=== PATIENT | male | born 1960 | race Caucasian/White ===

== ENCOUNTER → 2020-01-04 13:37 | Outpatient (CLI) | payer BC, SELFPAY ==
[2020-01-04 13:44] LABS: Basophils # 0.1 K/mm3 (0-0.2); Basophils % 1.1 % (0.1-2.0); Eosinophils # 0.9 K/mm3 (0.0-0.4); Eosinophils % 9.6 % (0.1-12.0); Hematocrit 48.8 % (42.0-52.0); Lymphocytes # 2.1 K/mm3 (0.7-4.5); Lymphocytes % 21.9 % (10-50); Mean Corpuscular HGB Conc 34.8 g/dL (31.8-35.4); Mean Corpuscular Volume 92.2 fl (80-94); Mean Platelet Volume 8.8 fl (7.4-10.4); Monocytes # 0.4 K/mm3 (0.1-1.0); Monocytes % 3.9 % (1.7-9.3); Neutrophils # 6.1 K/mm3 (1.8-7.8); Neutrophils % 63.5 % (37.0-80.0); Platelet Count 263 K/mm3 (142-424); Red Blood Count 5.29 M/mm3 (4.60-6.20); Red Cell Distribution Width 13.9 % (11.5-17.5); White Blood Count 9.6 K/mm3 (4.8-10.8)
[2020-01-04 14:04] LABS: Chloride 102 mmol/L (98-107); Potassium 4.3 mmoL/L (3.5-5.1); Sodium 141 mmol/L (136-145)
[2020-01-04 14:07] LABS: Alanine Aminotransferase 54 U/L (12-78); Albumin Level 4.1 g/dl (3.5-5.0); Albumin/Globulin Ratio 1.5 (1.1-1.8); Alkaline Phosphatase 73 U/L (38-126); Anion Gap 16.3 mEq/L (5-15); Aspartate Amino Transferase 40 U/L (17-59); Bilirubin,Total 0.7 mg/dl (0.2-1.3); Blood Urea Nitrogen 17 mg/dl (9-20); Carbon Dioxide 27 mmol/L (22.0-30.0); Estimated Glomerular Filt Rate 100 ml/min (>60); GFR (African American) 121 ML/MIN (>60); Globulin 2.8 g/dL (1.3-3.2); Total Protein,Serum 6.9 g/dl (6.3-8.2)
[2020-01-04 14:08] LABS: Calcium 10.2 mg/dl (8.4-10.2); Glucose 154 mg/dl (74-100)
[2020-01-04 14:09] LABS: Hemoglobin A1C 6.2 % (4.0-6.0)
[2020-01-05 15:18] LABS: PSA, Free 0.38 ng/mL; Prostate Specific Ag 0.7 ng/mL (0.0-4.0)
== END ==
PROVIDERS: Visit Provider Family Medicine
DX: E11.9 Type 2 diabetes mellitus without complications (principal); Z12.5 Encounter for screening for malignant neoplasm of prostate; Z79.84 Long term (current) use of oral hypoglycemic drugs
CPT/HCPCS: 80053; 83036; 84153; 84154; 85025

== ENCOUNTER → 2020-07-15 13:33 | Outpatient (CLI) | payer BC, SELFPAY ==
[2020-07-15 14:14] LABS: Microalbumin/Creatinine Ratio 27.6
[2020-07-15 14:15] LABS: Creatinine,Urine Random 186 mg/dL (Not Estab.)
[2020-07-15 14:32] LABS: Alanine Aminotransferase 50 U/L (12-78); Albumin Level 4.8 g/dl (3.5-5.0); Albumin/Globulin Ratio 1.5 (1.1-1.8); Alkaline Phosphatase 80 U/L (38-126); Anion Gap 18.4 mEq/L (5-15); Aspartate Amino Transferase 35 U/L (17-59); Bilirubin,Total 0.9 mg/dl (0.2-1.3); Blood Urea Nitrogen 21 mg/dl (9-20); Calcium 10.4 mg/dl (8.4-10.2); Carbon Dioxide 29 mmol/L (22.0-30.0); Chloride 95 mmol/L (98-107); Cholesterol 223 mg/dl (140-200); Estimated Glomerular Filt Rate 87 ml/min (>60); GFR (African American) 105 ML/MIN (>60); Globulin 3.2 g/dL (1.3-3.2); Glucose 164 mg/dl (74-100); HDL Cholesterol 28 mg/dl (40-60); Potassium 4.4 mmoL/L (3.5-5.1); Sodium 138 mmol/L (136-145); Triglycerides 243 mg/dl (30-150); VLDL Cholesterol 49 mg/dL (0-40)
[2020-07-15 14:33] LABS: Basophils # 0.1 K/mm3 (0-0.2); Basophils % 0.9 % (0.1-2.0); Eosinophils # 0.3 K/mm3 (0.0-0.4); Eosinophils % 3.7 % (0.1-12.0); Hematocrit 54.7 % (42.0-52.0); Lymphocytes # 2.9 K/mm3 (0.7-4.5); Mean Corpuscular HGB Conc 34.1 g/dL (31.8-35.4); Mean Corpuscular Hemoglobin 31.9 pg (27.0-31.2); Mean Corpuscular Volume 93.6 fl (80-94); Mean Platelet Volume 9.7 fl (7.4-10.4); Monocytes # 0.7 K/mm3 (0.1-1.0); Monocytes % 7.6 % (1.7-9.3); Neutrophils # 4.8 K/mm3 (1.8-7.8); Neutrophils % 54.9 % (37.0-80.0); Platelet Count 325 K/mm3 (142-424); Red Blood Count 5.85 M/mm3 (4.60-6.20); Red Cell Distribution Width 13.5 % (11.5-17.5); White Blood Count 8.7 K/mm3 (4.8-10.8)
[2020-07-15 14:37] LABS: Hemoglobin 18.6 g/dL (14.1-18.0)
[2020-07-15 14:49] LABS: Direct LDL Cholesterol 157.15 mg/dL (100-129)
[2020-07-15 14:52] LABS: 25-OH Vitamin D, Total 29.8 ng/mL (30-100); T4 (Thyroxine) 11.2 ug/dl (5.53-11.0)
[2020-07-15 15:00] LABS: Hemoglobin A1C 6.6 % (4.0-6.0)
[2020-07-15 15:05] LABS: Thyroid Stimulating Hormone 5.95 uIU/mL (0.465-4.68)
== END ==
PROVIDERS: Visit Provider Family Medicine
DX: E11.9 Type 2 diabetes mellitus without complications (principal); I10 Essential (primary) hypertension; E55.9 Vitamin D deficiency, unspecified; Z79.84 Long term (current) use of oral hypoglycemic drugs; Z79.899 Other long term (current) drug therapy
CPT/HCPCS: 80053; 80061; 82043; 82306; 82570; 83036; 84436; 84443; 85025

== ENCOUNTER → 2020-08-15 15:00 | Outpatient (CLI) | payer BC, SELFPAY ==
--- NOTE | 2020-08-15 15:20 | XR_ITS ---
PROCEDURE: XR FOOT WT BEARING LT 3V CLINICAL INDICATION: diabetic Pain COMPARISON: No exams were available for comparison FINDINGS: No fracture or dislocation. No lytic or blastic change. There is normal mineralization. Mild osteoarthritic change 1st metatarsophalangeal junction with pes planus and mild osteoarthritis of the talonavicular and navicular cuneiform joint as well as the tarsal metatarsal junction. There is a small calcaneal spur. No bony destructive process. Other findings:None. IMPRESSION: No acute findings. Dictated by: Warren Liriano MD 08/15/2020 17:36 Warren Liriano MD in [place] 08/15/2020 17:36
--- NOTE | 2020-08-15 15:20 | XR_ITS ---
PROCEDURE: XR FOOT WT BEARING RT 3V CLINICAL INDICATION: 2nd toe ulcer COMPARISON: No exams were available for comparison FINDINGS: There is pes planus with osteoarthritic changes of the 1st metatarsophalangeal junction and at the talonavicular and navicular cuneiform joint and tarsal metatarsal junction. There is soft tissue swelling of the 2nd toe. The distal phalanx of the 2nd toe has a somewhat blunted appearance. This however has a similar appearance on the left side. There are some sub cortical lucencies at the tip of the distal phalanx of the 2nd toe. IMPRESSION: Soft tissue swelling of the 2nd toe consistent with cellulitis. There are few subcortical lucencies at the distal aspect of the distal phalanx of the 2nd toe which is of questionable clinical significance. Cannot exclude the possibility of osteomyelitis. MRI may provide further value if clinically warranted Dictated by: Warren Liriano MD 08/15/2020 17:39 Warren Liriano MD in [place] 08/15/2020 17:39
[2020-08-15 15:23] LABS: Basophils # 0.1 K/mm3 (0-0.2); Basophils % 1.1 % (0.1-2.0); Eosinophils # 0.2 K/mm3 (0.0-0.4); Eosinophils % 2.2 % (0.1-12.0); Hematocrit 48.8 % (42.0-52.0); Hemoglobin 16.7 g/dL (14.1-18.0); Lymphocytes # 2.4 K/mm3 (0.7-4.5); Lymphocytes % 30.3 % (10-50); Mean Corpuscular HGB Conc 34.1 g/dL (31.8-35.4); Mean Corpuscular Hemoglobin 30.8 pg (27.0-31.2); Mean Corpuscular Volume 90.3 fl (80-94); Mean Platelet Volume 8.7 fl (7.4-10.4); Monocytes # 0.5 K/mm3 (0.1-1.0); Monocytes % 5.9 % (1.7-9.3); Neutrophils # 4.7 K/mm3 (1.8-7.8); Neutrophils % 60.4 % (37.0-80.0); Platelet Count 285 K/mm3 (142-424); Red Cell Distribution Width 13.2 % (11.5-17.5); White Blood Count 7.9 K/mm3 (4.8-10.8)
[2020-08-15 17:05] LABS: Alanine Aminotransferase 43 U/L (12-78); Albumin Level 4.7 g/dl (3.5-5.0); Albumin/Globulin Ratio 1.4 (1.1-1.8); Alkaline Phosphatase 73 U/L (38-126); Anion Gap 13.6 mEq/L (5-15); Aspartate Amino Transferase 38 U/L (17-59); Bilirubin,Total 0.7 mg/dl (0.2-1.3); Blood Urea Nitrogen 17 mg/dl (9-20); Calcium 10.2 mg/dl (8.4-10.2); Carbon Dioxide 29 mmol/L (22.0-30.0); Chloride 102 mmol/L (98-107); Estimated Glomerular Filt Rate 87 ml/min (>60); GFR (African American) 105 ML/MIN (>60); Globulin 3.3 g/dL (1.3-3.2); Glucose 164 mg/dl (74-100); Potassium 4.6 mmoL/L (3.5-5.1); Sodium 140 mmol/L (136-145)
[2020-08-15 17:10] LABS: C-Reactive Protein 6.2 mg/L (0-4)
[2020-08-15 19:52] LABS: Erythrocyte Sedimentation Rate 6 mm/hr (0-20)
== END ==
PROVIDERS: PCP Family Medicine; Visit Provider Podiatrist
DX: E11.621 Type 2 diabetes mellitus with foot ulcer (principal); L02.611 Cutaneous abscess of right foot; L97.519 Non-pressure chronic ulcer of other part of right foot with unspecified severity; L03.031 Cellulitis of right toe; Z98.890 Other specified postprocedural states; Z79.84 Long term (current) use of oral hypoglycemic drugs
CPT/HCPCS: 36415; 73630; 80053; 85025; 85651; 86140; 87070; 87077; 87186; 87205

== ENCOUNTER → 2020-09-01 10:18 | Outpatient (CLI) | payer BC, SELFPAY ==
--- NOTE | 2020-09-01 10:20 | US_ITS ---
APPROVED REPORT Exam Type: Lower Extremity Segmental Pressures Fleet Driver: Francesca Martinez RVT Indications Non-healing Ulcer: Right ULCER RT 2ND TOE,PRE-OP Risk Factors Diabetes Pressures/Indices Right Indices Left Indices Brachial 156.00 mmHg Brachial 166.00 mmHg Low Thigh 177.00 mmHg 1.07 Low Thigh 175.00 mmHg 1.05 Calf 191.00 mmHg 1.15 Calf 179.00 mmHg 1.08 Ankle(PT) 203.00 mmHg 1.22 Ankle(PT) 166.00 mmHg 1.00 Ankle(DP) 195.00 mmHg 1.17 Ankle(DP) 183.00 mmHg 1.10 Digit 120.00 mmHg 0.72 Digit 110.00 mmHg 0.66 Findings RT CHAD:1.22 LT CHAD:1.10 RT TBI:0.72 LT TBI:0.66 NORMAL PULSES BILATERAL NORMAL WAVEFORMS BILATERAL Conclusion RT CHAD:1.22 LT CHAD:1.10 RT TBI:0.72 LT TBI:0.66 NORMAL PULSES BILATERAL NORMAL WAVEFORMS BILATERAL Electronically signed by : Warren Liriano MD 09/01/2020 18:32:35
== END ==
PROVIDERS: PCP Family Medicine; Visit Provider Podiatrist
DX: R20.8 Other disturbances of skin sensation (principal); R20.0 Anesthesia of skin; R20.2 Paresthesia of skin
CPT/HCPCS: 93923

== ENCOUNTER → 2021-03-28 19:24 | Outpatient (CLI) | payer BC, SELFPAY ==
[2021-03-28 21:43] LABS: Hemoglobin A1C 8.8 % (4.0-6.0)
[2021-03-28 21:48] LABS: Alanine Aminotransferase 42 U/L (12-78); Albumin/Globulin Ratio 1.3 (1.1-1.8); Alkaline Phosphatase 78 U/L (38-126); Anion Gap 13.4 mEq/L (5-15); Aspartate Amino Transferase 30 U/L (17-59); Bilirubin,Total 0.6 mg/dl (0.2-1.3); Blood Urea Nitrogen 18 mg/dl (9-20); Calcium 9.8 mg/dl (8.4-10.2); Carbon Dioxide 28 mmol/L (22.0-30.0); Chloride 103 mmol/L (98-107); Estimated Glomerular Filt Rate 138 ml/min (>60); GFR (African American) 167 ML/MIN (>60); Globulin 3.1 g/dL (1.3-3.2); Glucose 176 mg/dl (74-100); Potassium 4.4 mmoL/L (3.5-5.1); Sodium 140 mmol/L (136-145); Total Protein,Serum 7.1 g/dl (6.3-8.2)
[2021-03-28 22:21] LABS: Thyroid Stimulating Hormone 4.23 uIU/mL (0.465-4.68)
== END ==
PROVIDERS: Visit Provider Family Medicine
DX: E11.9 Type 2 diabetes mellitus without complications (principal); Z79.84 Long term (current) use of oral hypoglycemic drugs
CPT/HCPCS: 80053; 83036; 84443

== ENCOUNTER → 2022-02-20 08:14 | Outpatient (CLI) | payer BC, SELFPAY ==
[2022-02-20 20:52] LABS: Basophils # 0.1 K/mm3 (0-0.2); Eosinophils # 0.2 K/mm3 (0.0-0.4); Eosinophils % 2.1 % (0.1-12.0); Hematocrit 48.7 % (42.0-52.0); Hemoglobin 15.6 g/dL (14.1-18.0); Lymphocytes # 2.5 K/mm3 (0.7-4.5); Lymphocytes % 27.8 % (10-50); Mean Corpuscular Hemoglobin 30.2 pg (27.0-31.2); Mean Corpuscular Volume 94.4 fl (80-94); Mean Platelet Volume 10.5 fl (7.4-10.4); Monocytes # 0.5 K/mm3 (0.1-1.0); Monocytes % 5.5 % (1.7-9.3); Neutrophils # 5.7 K/mm3 (1.8-7.8); Neutrophils % 63.5 % (37.0-80.0); Platelet Count 340 K/mm3 (142-424); Red Blood Count 5.16 M/mm3 (4.60-6.20); Red Cell Distribution Width 14.3 % (11.5-17.5)
[2022-02-20 21:37] LABS: Alanine Aminotransferase 39 U/L (12-78); Albumin Level 4.3 g/dl (3.5-5.0); Albumin/Globulin Ratio 1.4 (1.1-1.8); Alkaline Phosphatase 97 U/L (38-126); Anion Gap 15.5 mEq/L (5-15); Aspartate Amino Transferase 32 U/L (17-59); Bilirubin,Total 0.3 mg/dl (0.2-1.3); Blood Urea Nitrogen 20 mg/dl (9-20); Calcium 9.6 mg/dl (8.4-10.2); Carbon Dioxide 28 mmol/L (22.0-30.0); Chloride 100 mmol/L (98-107); Chol/HDL Ratio 8.1 (1-3.5); Cholesterol 260 mg/dl (140-200); Estimated Glomerular Filt Rate 86 ml/min (>60); GFR (African American) 105 ML/MIN (>60); Glucose 161 mg/dl (74-100); HDL Cholesterol 32 mg/dl (40-60); Potassium 4.5 mmoL/L (3.5-5.1); Sodium 139 mmol/L (136-145); Total Protein,Serum 7.3 g/dl (6.3-8.2); Triglycerides 269 mg/dl (30-150); VLDL Cholesterol 54 mg/dL (0-40)
[2022-02-20 22:10] LABS: Prostate Specific Ag Screen 0.9 ng/ml (0.0-4.0); Thyroid Stimulating Hormone 5.64 uIU/mL (0.465-4.68)
[2022-02-22 08:25] LABS: Direct LDL Cholesterol 159 mg/dL (100-129)
== END ==
PROVIDERS: PCP Family Medicine; Visit Provider Family Medicine
DX: I10 Essential (primary) hypertension (principal); E78.5 Hyperlipidemia, unspecified; E03.9 Hypothyroidism, unspecified; E11.9 Type 2 diabetes mellitus without complications; Z79.84 Long term (current) use of oral hypoglycemic drugs
CPT/HCPCS: 80053; 80061; 83036; 84443; 85025; G0103

== ENCOUNTER 2023-08-22 22:26 | Outpatient (CLI) | payer BC, SELFPAY ==
[2023-08-22 18:45] LABS: Basophils # 0.1 K/mm3 (0-0.2); Basophils % 1.1 % (0.1-2.0); Eosinophils # 0.3 K/mm3 (0.0-0.4); Eosinophils % 2.9 % (0.1-12.0); Hemoglobin 15.6 g/dL (14.1-18.0); Lymphocytes # 2.7 K/mm3 (0.7-4.5); Lymphocytes % 30.3 % (10-50); Mean Corpuscular HGB Conc 33.2 g/dL (31.8-35.4); Mean Corpuscular Hemoglobin 31.2 pg (27.0-31.2); Mean Platelet Volume 10.1 fl (7.4-10.4); Monocytes # 0.6 K/mm3 (0.1-1.0); Monocytes % 6.1 % (1.7-9.3); Neutrophils # 5.4 K/mm3 (1.8-7.8); Neutrophils % 59.7 % (37.0-80.0); Platelet Count 270 K/mm3 (142-424); Red Cell Distribution Width 15.1 % (11.5-17.5)
[2023-08-22 20:09] LABS: Alanine Aminotransferase 32 U/L (12-78); Albumin Level 3.9 g/dl (3.5-5.0); Albumin/Globulin Ratio 1.6 (1.1-1.8); Alkaline Phosphatase 89 U/L (38-126); Anion Gap 12.4 mEq/L (5-15); Aspartate Amino Transferase 33 U/L (17-59); Bilirubin,Total 0.7 mg/dl (0.2-1.3); Blood Urea Nitrogen 22 mg/dl (9-20); Calcium 9.4 mg/dl (8.4-10.2); Carbon Dioxide 25 mmol/L (22.0-30.0); Chloride 104 mmol/L (98-107); Chol/HDL Ratio 10.2 (1-3.5); Cholesterol 234 mg/dl (140-200); Estimated Glomerular Filt Rate 98 ml/min (>60); GFR (African American) 119 ML/MIN (>60); Globulin 2.5 g/dL (1.3-3.2); Glucose 235 mg/dl (74-100); HDL Cholesterol 23 mg/dl (40-60); Potassium 4.4 mmoL/L (3.5-5.1); Sodium 137 mmol/L (136-145); Total Protein,Serum 6.4 g/dl (6.3-8.2)
[2023-08-22 20:10] LABS: Triglycerides 497 mg/dl (30-150)
[2023-08-22 20:20] LABS: Direct LDL Cholesterol 104.73 mg/dL (100-129)
[2023-08-22 20:26] LABS: T4 (Thyroxine) 7.4 ug/dl (5.53-11.0)
[2023-08-22 20:40] LABS: Thyroid Stimulating Hormone 2.99 uIU/mL (0.465-4.68)
== END 2023-08-22 23:59 ==
LOC: LAB.DROPOF 22:26
PROVIDERS: PCP Family Medicine; Visit Provider Family Medicine
DX: E78.5 Hyperlipidemia, unspecified (principal); E11.9 Type 2 diabetes mellitus without complications; E03.9 Hypothyroidism, unspecified; Z79.4 Long term (current) use of insulin
CPT/HCPCS: 80053; 80061; 83036; 84436; 84443; 85025

== ENCOUNTER 2024-12-31 14:38 | Outpatient (CLI) | payer BC, SELFPAY ==
--- OUTSIDE RECORDS SUMMARY | 2024-12-31 14:43 | XMS_ITS | Clinical Summary ---
Author Organization [facility] Address [address] [place], [place] [address] Phone Care Team Providers Care Vegetable Cutter Name Role Phone Alec Sanabria MD Primary Care Provider [phone] Allergies No known active allergies Medications aspirin (ASPIRIN) 81 mg Oral Tablet, ChewableIndications :Essential hypertension,Uncont rolled type 2 diabetes mellitus with hyperosmolarity without coma, without long-term current use of insulin (HCC),Hyperlipidemi a, mixed Take 1 Tab by mouth daily. 30 Tab 01/05/20 17 Active Cholecalciferol, Vitamin D3, 5,000 unit Oral CapsuleIndications: Vitamin D deficiency TAKE 1 CAPSULE BY MOUTH DAILY 100 Cap 04/22/20 17 Active Additional Information Patient taking differently: 2 TIMES DAILY, Reason: Other (takes twice day), Informant: Self/Patient, Reported on 01/08/2024 metFORMIN (GLUCOPHAGE) 1,000 mg Oral TabletIndications:U ncontrolled diabetes mellitus type 2 without complications Take 1 Tab by mouth 2 times daily (with meals). 60 Tab 12/23/19 19 Active lisinopril-hydrochl orothiazide (PRINZIDE;ZESTORETI C) 20-25 mg Oral TabletIndications:E ssential hypertension Take 1 Tab by mouth daily. 30 Tab 12/30/19 19 Active dulaglutide (TRULICITY) 0.75 mg/0.5 mL SubQ Pen Injector Subcutaneous (Inject under the skin) 0.75 mg once a week. Active atorvastatin (LIPITOR) 40 mg Oral TabletIndications:H yperlipidemia, mixed Take 1 Tablet by mouth daily. 30 Tablet 3:55 PM EST 05/19/20 23 Active Additional Information Patient not taking.Reason: Therapy Completed, Reported on 01/20/2024 fish oil OTC (OMEGA-3 DHA-EPA 300 MG) 300-1,000 mg Oral Capsule, Delayed Release(E.C.) Take 2 g by mouth daily. 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 05/17/2023 Chronic toe ulcer, left, with fat layer exposed 05/17/2023 Chronic ulcer of right great toe, with fat layer exposed 05/17/2023 Osteomyelitis of third toe of right foot 023 JEREMIAH (acute kidney injury) 05/16/2023 Diabetic foot infection 02/04/2022 Cellulitis of toe of right foot 03/18/2021 Type 2 diabetes mellitus wit hout complication, without long-term current use of insulin 07/08/2017 Hypertension associated with diabetes 11/09/2014 Diabetic polyneuropathy asso ciated with type 2 diabetes mellitus Resolved Problems Problem Noted Date Diagnosed Date Resolved Date Osteomyelitis of great toe of left foot 02/04/2022 05/17/2023 Acute prerenal azotemia 02/04/2022 12/0 06/2022 Hyponatremia 02/04/2022 05/17/2023 Septic arthritis of right foot 03/18/2021 05/17/2023 Osteomyelitis of toe 03/17/2021 023 2019-nCoV vaccination not done 03/17/2021 05/17/2023 Abscess of left great toe Ulcer of left foot, with necrosis of muscle 05/17/2023 Immunizations Immunization Administration Dates Next Due Tdap 11/09/2014 Surgical History Surgery Date Site/Laterality Comments FOOT SURGERY 03/18/2021 Right PARTIAL AMPUTATION SECOND DIGIT RIGHT FOOT; Surgeon: Eugene Manzo DPM; Location: [facility]; Service: Podiatry FOOT SURGERY 02/05/2022 Foot/Ankle/Left INCISION AND DRAINAGE WITH DEBRIDEMENT LEFT FOOT WOUND; Surgeon: Roman Tidwell DPM; Location[facility]; Service: Podiatry FOOT SURGERY 05/17/2023 Foot/Ankle/Right RIGHT FOOT INCISION AND DRAINAGE WITH PARTIAL THIRD TOE AMPUTATION; Surgeon: Roman Tidwell DPM; Location: [facility]; Service: Podiatry TOE AMPUTATION 05/17/2023 Foot/Ankle/Right Foot/Ankle Surgeon: oRman Tidwell DPM; Location: [facility]; Service: Podiatry COLONOSCOPY TOE FUSION 06/11/2023 Foot/Ankle/Left Hallux fusion of the left foot first metatarsal.; Surgeon: Roman Tidwell DPM; Location: [facility]; Service: Podiatry TOE AMPUTATION 01/13/2024 Foot/Ankle/Left Amputation of the left hallux.; Surgeon: Roman Tidwell DPM; [facility]; Service: Podiatry Medical History Medical History Date Comments Diabetes mellitus (HCC) type II Hypertension Neuropathy in diabetes (HCC) At doctor Osteomyelitis of great toe of left foot (HCC) Hyperlipidemia Anxiety and depression Family History Medical History Relation Name Comments High Blood Pressure Father Anesth Problems Neg Hx Relation Name Status Comments Father Mother Social History Tobacco Use Types Packs/Day Years Used Date Smoking Tobacco: Never Smokeless Tobacco: Never Tobacco Cessation:Counseling Given: No Alcohol Use Standard Drinks/Week Comments Not Currently 0 (1 standard drink = 0.6 oz pur e alcohol) Overall Financial Resource Strain (CARDI) Answe r Date Recorded How hard is it for you to pa y for the very basics like food, housing, medical care, and heating? Not hard at all 05/18/2023 PHQ-2 Answer Date Recorded PHQ-2 Total Score 0 05/18/2023 Exercise Vital Sign Answer Date Recorde d On average, how many days pe r week do you engage in moderate to strenuous exercise (like a brisk walk)? 0 days 05/18/2023 On average, how many minutes do you engage in exercise at this level? 0 min 05/18/2023 Hunger Vital Sign Answer Date Recorded Within the past 12 months, y ou worried that your food would run out before you got the money to buy more. Never true 05/18/20 23 Within the past 12 months, t he food you bought just didn't last and you didn't have money to get more. Never true 05/18/2023 PRAPARE - Transportation Answer Date Re corded In the past 12 months, has l ack of transportation kept you from medical appointments or from getting medications? No 07/2022 In the past 12 months, has l ack of transportation kept you from meetings, work, or from getting things needed for daily living? No 05/18/2023 Sexually Active Control Partners Comments Yes Female Sex and Gender Information Value Date Recorded Sex Assigned at Not on file Legal Sex Male 6:09 PM EDT Gender Identity Not on file Sexual Orientation Not on file Obstetrics History Last Filed Vital Signs Vital Sign Reading Time Taken Comments Blood Pressure 164/70 01/13/2024 1:15 PM EDT Pulse 62 01/13/2024 1:15 PM EDT Temperature 36.4 C (97.6 F) 03/03/2024 3:44 PM EDT Respiratory Rate 16 01/13/2024 1:15 PM EDT Oxygen Saturation 97% 01/13/2024 1:15 PM EDT Inhaled Oxygen Concentration - - Weight 126.3 kg (278 lb 6.4 oz) 03/03/2024 3:44 PM EDT Height 190.5 cm (6' 3 ) 03/03/2024 3:44 PM EDT Body Mass Index 34.8 03/03/2024 3:44 PM EDT Plan of Treatment Health Maintenance Due Date Last Done Comments Diabetic Eye Exam 1980 Pneumococcal Vaccine 50+ (1 of 2 - PCV) 1981 Cologuard 2007 Colon Cancer Screening 2007 Colonoscopy 2007 FIT 2007 Sigmoidoscopy 2007 Virtual Colonography 2007 Zoster (1 of 2) 2012 Annual Wellness Exam 02/21/2019 02/21/2018, 01/05/20 17 Kidney Health: uACR 02/21/2019 02/21/2018 RSV or 60+ (1 - Risk 60-74 years 1-dose series) 2022 Hemoglobin A1c 11/14/2023 05/16/2023, 01/16, 03/16/2021, Additional history exists COVID-19 Vaccine ( season) 2024 Lipids 05/18/2024 05/18/2023, 02/17, 02/21/2018, Additional history exists Kidney Health: eGFR 05/19/2024 05/19/2023, 05/18/2023, 05/17/2023, Additional history exists DTaP/TDaP/Td (2 - Td or Tdap) 11/09/2024 11/09/2014 Influenza Vaccine (#1) 2025 07/08/2017 (Declin ed) Hepatitis C Screening Completed 01/18/2017, 017 Hepatitis B Vaccine Aged Out No longe r eligible based on patient's age to complete this topic Meningococcal B Vaccine Aged Out No l onger eligible based on patient's age to complete this topic Goals Goal Patient Goal Type Associated Problems Recent Progress Patient-Stated? Author Blood Pressure < 140/90 Blood Pressure 164/70(2023 1:15 PM EDT) No Ese Liz RMA Maintain a healthy diet, exercise regularly and maintain an ideal body weight General No Ese Liz RMA BMI (Calculated) < 30 General 34.9(03/03/20 24 3:44 PM EDT) No Alma Delia Green MD HEMOGLOBIN A1C < 7.0 Result Component 7.6( 4:50 PM EST) No Alma Delia Green MD Procedures Procedure Name Priority Date/Time Associated Diagnosis Comments BASIC METABOLIC PANEL Early AM 05/19/2023 4:56 AM EST LIPID SCREEN Early AM 05/18/2023 4:42 AM EST HEMOGLOBIN A1C Routine 05/16/2023 4:50 PM EST MICROALBUMIN/CREATIN INE RATIO URINE Routine 02/21/2018 10:51 AM EDT Type 2 diabetes mellitus without complication, without long-term current use of insulin (HCC) ACUTE HEPATITIS PANEL Routine 01/18/2017 9:21 AM EDT Need for hepatitis C screening test from Last 3 Months or Most Recently Relevant to Health Maintenance Results * (ABNORMAL) BASIC METABOLIC PANEL (05/19/2023 4:56 AM EST) Sodium 140 136 - 145 mmol/L 05/19/2023 5:57 AM EST [facility] Potassium 4.4 3.5 - 5.0 mmol/L 05/19/2023 5:57 AM EST [facility] Chloride 105 98 - 107 mmol/L 05/19/2023 5:57 AM EST [facility] Total CO2 27 22 - 29 mmol/L 05/19/2023 5:57 AM EST [facility] Anion Gap 8 7 - 16 mmol/L 05/19/2023 5:57 AM EST [facility] Calcium 8.6(L) 8.8 - 10.4 mg/dL 05/19/2023 5:57 AM EST [facility] Glucose Lvl 136(H) 82 - 100 mg/dL 05/19/2023 5:57 AM EST [facility] BUN 16 8 - 23 mg/dL 05/19/2023 5:57 AM EST [facility] Creatinine 0.95 0.67 - 1.30 mg/dL 05/19/2023 5:57 AM EST [facility] eGFR (CKD-EPIcr 2020) 92 >=60 mL/min/1.7 3 m2 05/19/2023 5:57 AM EST [facility] Comment:Estimated GFR was ca lculated using the CKD-EPIcr (2020) equation refit without race. The equation is recommended by the National Kidney Foundation - [place] [employer] Neph[employer] Task Force. Blood VENOUS BLOOD / Unknown Venipuncture / Unknown 05/19/2023 4:56 AM EST 05/19/2023 5:29 AM EST us Roman Tidwell DPKati CHEMISTRY ORDERABLES Final Result [facility] [address] , [place] [address] [facility] [address] [place] [address] * (ABNORMAL) LIPID SCREEN (05/18/2023 4:42 AM EST) Pathologist [facility] Cholesterol 153 <200 mg/dL 05/18/2023 8:18 AM EST [facility] Comment: < 200 Desirable 200 - 239 Borderline High >= 240 High Triglyceride 77 <150 mg/dL 05/18/2023 8:18 AM EST [facility] Comment: < 150 Normal 150 - 199 Borderline High 200 - 499 High >= 500 Very High HDL 24(L) >=40 mg/dL 05/18/2023 8:18 AM EST [facility] Comment: > 60 Optimal 40 - 60 Acceptable < 40 Low LDL Calculated 114(H) <100 mg/dL 05/18/2023 8:18 AM EST [facility] Comment: < 100 Optimal 100 - 129 Near or above optimal 130 - 159 Borderline High 160 - 189 High >= 190 Very High Non-HDL-C Calculated 129 <=129 mg/dL 05/18/2023 8:18 AM EST [facility] Comment: <130 Desirable 130-159 Above Desirable 160-189 Borderline High 190-219 High >= 220 Very High Fasting Specimen? Yes None 023 8:18 AM EST [facility] Blood VENOUS BLOOD / Unknown Venipuncture / Unknown 05/18/2023 4:42 AM EST 05/18/2023 7:17 AM EST Roman Tidwell DPKati CHEMISTRY ORDERABLES Final Result [facility] [address] , [place] [address] [facility] [address] [place] [address] * (ABNORMAL) HEMOGLOBIN A1C (05/16/2023 4:50 PM EST) Pathologist [facility] Hgb A1C 7.6(H) 4.2 - 5.6 % 05/16/2023 5:51 PM EST [facility] Est. Avg Glucose 171 mg/dL 05/16/2023 5:51 PM EST [facility] [employer] [facility] Blood VENOUS BLOOD / Unknown Venipuncture / Unknown 05/16/2023 4:50 PM EST 05/16/2023 5:06 PM EST Narrative [facility] - 05/16/2023 5:51 PM EST REFERENCE RANGE: Normal: 4.0-5.6% Pre-diabetes: 5.7-6.4% Provisional diagnosis of diabetes: >6.4% Hgb F>10% and anything which shortens red cell survival, such as hemolytic anemia, or unstable hemoglobin variants such as HbSS, HbSC, or HbCC, will lower the HbA1c value associated with a given level of glycemic control. Lori Vallejo MD CHEMISTRY ORDERABLES Final Re sult Performing Organization Address [facility] Co de Phone Number [facility] [employer] , [place] [address] * (ABNORMAL) MICROALBUMIN/CREATININE RATIO URINE (02/21/2018 10:51 AM EDT) [facility] Urine Microalb 50.6 mg/L 02/21/2018 5:02 PM EDT [facility] Urine Creatinine 86.3 mg/dL 02/21/2018 5:02 PM EDT [facility] Ur Microalb/Creat 59(H) 0 - 30 mg/g 02/21/2018 5:02 PM EDT [facility] Urine STRUCTURE OF URINARY TRACT PROPER / Unknown 02/21/2018 10:51 AM EDT 02/21/2018 10:51 AM EDT us Garfield Dallas MD URINE ORDERABLES Final Result Performing Organization Address [facility]/ZIP Co de Phone Number [address] , [place] [address] [facility] [address] [place] [id number] * ACUTE HEPATITIS PANEL (01/18/2017 9:21 AM EDT) Hep Bs Ag Negative Negative [facility] Hep B Core IgM Negative Negative [facility] Hep A IgM Negative Negative [facility] Hep C Ab Negative Negative [facility] Blood specimen (specimen) UPPER LIMB STRUCTURE / Unknown 01/18/2017 9:21 AM EDT 01/18/2017 4:47 PM EDT Melody Parnell MANAGER INTERNAL CHEMISTRY ORDERABLES Edited Result - Final [facility] [address] [place] [address] from Last 3 Months or Most Recently Relevant to Health Maintenance Additional Health Concerns Infection Onset Date Last Indicated CRE/PROVIDER NETWORK ANALYST 02/04/2022 02/04/2022 Insurance ([employer]) [id number] [employer] [facility] HIP MDR Advance Directives For more information, please contact: [phone] * Full Code (Latest Code Status on File) Date Activated Date Inactivated Comments 05/16/2023 4:32 PM 05/19/2023 8:16 PM * Full Code Date Activated Date Inactivated Comments 02/07/2022 12:38 PM 02/07/2022 8:17 PM * Full Code Date Activated Date Inactivated Comments 03/17/2021 9:00 AM 03/20/2021 8:23 PM * Full Code Date Activated Date Inactivated Comments 03/17/2021 9:00 AM 03/17/2021 9:00 AM Care Teams Vegetable Cutter Relationship Specialty Start Date End Date Alec Sanabria MD PCP - General Family Medicine 03/20/21
[2024-12-31 15:40] LABS: Alanine Aminotransferase 19 U/L (12-78); Albumin Level 3.8 g/dl (3.5-5.0); Albumin/Globulin Ratio 1.4 (1.1-1.8); Alkaline Phosphatase 98 U/L (38-126); Anion Gap 16.1 mEq/L (5-15); Aspartate Amino Transferase 23 U/L (17-59); Bilirubin,Total 0.8 mg/dl (0.2-1.3); Blood Urea Nitrogen 20 mg/dl (9-20); Calcium 9.6 mg/dl (8.4-10.2); Carbon Dioxide 25 mmol/L (22.0-30.0); Chloride 98 mmol/L (98-107); Cholesterol 277 mg/dl (140-200); Creatinine,Serum 0.90 mg/dl (0.66-1.25); Estimated Glomerular Filt Rate 86 ml/min (>60); GFR (African American) 103 ML/MIN (>60); Globulin 2.8 g/dL (1.3-3.2); Glucose 324 mg/dl (74-100); HDL Cholesterol 29 mg/dl (40-60); Potassium 4.1 mmoL/L (3.5-5.1); Sodium 135 mmol/L (136-145); Total Protein,Serum 6.6 g/dl (6.3-8.2); Triglycerides 339 mg/dl (30-150)
[2024-12-31 16:09] LABS: Thyroid Stimulating Hormone 3.36 uIU/mL (0.465-4.68)
[2024-12-31 16:25] LABS: Hepatitis C Ab Qual. W/ RFX NEGATIVE (Negative)
[2025-01-01 09:15] LABS: Hepatitis B Surface Antigen Negative (Negative)
== END 2024-12-31 23:59 | disposition home or self-care (01) ==
LOC: LAB.DROPOF 14:39
PROVIDERS: PCP Family Medicine; Visit Provider Family Medicine
DX: E11.9 Type 2 diabetes mellitus without complications (principal); I10 Essential (primary) hypertension; E03.9 Hypothyroidism, unspecified; E66.9 Obesity, unspecified; E78.5 Hyperlipidemia, unspecified; Z12.5 Encounter for screening for malignant neoplasm of prostate; Z11.59 Encounter for screening for other viral diseases
CPT/HCPCS: 80053; 80061; 80074; 84443; 87340; 87389; G0103